=== PATIENT | male | born 1960 | race Caucasian/White ===

== ENCOUNTER 2021-10-30 19:22 | Emergency (ER) | payer OTHER ==
[2021-10-30] MEDS ORDERED: Cefepime 2 GM VIAL ONE (20:44)
[2021-10-30] MEDS ORDERED: Morphine 4 MG/ML VIAL ONE ×2 (20:44→22:13)
[2021-10-30 20:46] LABS: #Basophils 0.1 10x3/uL (0.0-0.2); #Monocytes 1.2 10x3/uL (0.0-1.1); #Neutrophils 10.2 10x3/uL (1.5-8.4); %Basophils 0.4 % (0.0-2.0); %Eosinophils 0.2 % (0.0-6.0); %Lymphocytes 4.7 % (18.0-47.0); %Monocytes 9.8 % (0.0-10.0); %Neutrophils 84.5 % (40.0-75.0); Hemoglobin 13.1 g/dL (13.5-17.5); Mean Corpuscular HGB CONC 33.8 g/dL (32.0-36.0); Mean Corpuscular Hemoglobin 29.1 pg (27.0-33.0); Mean Corpuscular Volume 86.2 fl (81.2-95.1); Mean Platelet Volume 10.6 fl (7.4-10.4); Platelet Count 162 10x3/uL (150-450); RBC Distribution Width 13.7 % (11.5-14.5); White Blood Cell (WBC) Count 12.1 10x3/uL (3.5-10.5)
[2021-10-30] MEDS ORDERED: Cefepime 1 GM VIAL ONE (20:47)
[2021-10-30] MEDS ORDERED: cefTRIAXone\\ROCEPHIN 1 GM VIAL ONE (20:56)
[2021-10-30 20:57] LABS: ALT (SGPT) 13 U/L (8-55); AST (SGOT) 16 U/L (5-34); Albumin 3.8 g/dL (3.4-4.8); Alkaline Phosphatase 82 U/L (40-110); Anion Gap 12 mmol/L (10-20); BUN (Urea Nitrogen) 22 mg/dL (8.4-25.7); Bilirubin, Total 0.6 mg/dL (0.2-1.2); Calc. Creatinine Clearance 0 mL/min (70-130); Calcium 9.4 mg/dL (7.8-10.44); Carbon Dioxide 25 mmol/L (23-31); Chloride 99 mmol/L (98-107); Estimated GFR 46; Globulin 3.3 g/dL (2.4-3.5); Glucose 129 mg/dL (80-115); Potassium 4.5 mmol/L (3.5-5.1); Protein, Total 7.1 g/dL (5.8-8.1); Sodium 131 mmol/L (136-145)
[2021-10-30 21:19] LABS: SARS-CoV-2 NAA Rapid Test Not Detected (NotDetected)
[2021-10-31] MEDS ORDERED: Morphine 4 MG/ML VIAL ONE (00:47)
== END 2021-10-31 01:20 ==
LOC: CSHERS 19:22
DX: M65.9 Synovitis and tenosynovitis, unspecified (principal); E03.9 Hypothyroidism, unspecified; I25.10 Atherosclerotic heart disease of native coronary artery without angina pectoris; I10 Essential (primary) hypertension; E78.5 Hyperlipidemia, unspecified; Z87.891 Personal history of nicotine dependence; Z20.822 Contact with and (suspected) exposure to COVID-19
CPT/HCPCS: 36415; 80053; 83605; 85025; 87040; 87077; 87149; 94760; 96361; 96365; 96366; 96367; 96375; 96376; J0692; J0696; J2270; J3370; U0002